=== PATIENT | female | born 1995 | race Caucasian/White ===

== ENCOUNTER 2016-09-26 16:55 | Emergency (ER) | payer OTHER ==
[~2016-09-26 16:55] MED LIST: ALBUTEROL17 GM INH; CLARITIN R10 MG REDI; FLOVENT HFA12 GM INH; LORATADINE PO; MACROBID100 MG PO; PRENATAL1 TA1 PO; REGLAN10 MG PO; SINGULAIR PO; VITAMIN B650 M1 PO
[2016-09-26] MEDS ORDERED: VALTREX500 MG (17:01)
== END 2016-09-26 17:01 | disposition home or self-care (01) ==
LOC: SED 16:55
DX: O99.713 Diseases of the skin and subcutaneous tissue complicating pregnancy, third trimester (principal); L98.499 Non-pressure chronic ulcer of skin of other sites with unspecified severity; Z3A.36 36 weeks gestation of pregnancy
CPT/HCPCS: 87253; 99284